=== PATIENT | male | born 1970 | race Caucasian/White ===

== ENCOUNTER 2022-09-27 08:12 | Emergency (ER) | payer MEDICAID ==
[~2022-09-27] VITALS: Ht 175.3 cm; Wt 63.6 kg
[2022-09-27 08:18] VITALS: BP 100/65
== END 2022-09-27 09:20 | disposition home or self-care (01) ==
LOC: EMS 08:16
DX: F41.9 Anxiety disorder, unspecified (principal); F31.9 Bipolar disorder, unspecified; F15.90 Other stimulant use, unspecified, uncomplicated
CPT/HCPCS: 99281; Z7502